=== PATIENT | male | born 1955 | race Caucasian/White ===

== ENCOUNTER 2016-12-09 10:58 | Emergency (ER) | payer BC ==
[~2016-12-09] VITALS: Ht 180.3 cm; Wt 77.3 kg
[2016-12-09] MEDS ORDERED: DIPH,PERTUSS(ACELL),TET VAC/PF 0.5 ML IM-VACC ONE ×2 (12:00→12:06)
[2016-12-09] MEDS ORDERED: LIDOCAINE 1%, 20ML ONE (12:05)
[2016-12-09] MEDS ORDERED: LIDOCAINE 1%, 20ML INFIL ONE (12:30)
[2016-12-09 16:00] VITALS: BP 111/77
== END 2016-12-09 16:04 | disposition home or self-care (01) ==
LOC: ED 14:12
DX: S02.2XXB Fracture of nasal bones, initial encounter for open fracture (principal); S02.2XXA Fracture of nasal bones, initial encounter for closed fracture; S01.81XA Laceration without foreign body of other part of head, initial encounter; S01.411A Laceration without foreign body of right cheek and temporomandibular area, initial encounter; Y04.2XXA Assault by strike against or bumped into by another person, initial encounter; Y93.89 Activity, other specified; Y92.512 Supermarket, store or market as the place of occurrence of the external cause; Y99.8 Other external cause status
CPT/HCPCS: 12013; 13151; 70450; 70486; 72125; 90471; 90715; 93005; 99285; J3490

== ENCOUNTER 2017-02-11 13:16 | Inpatient (IN) | payer BC ==
[~2017-02-11] VITALS: Ht 180.3 cm; Wt 78.7 kg
[2017-02-11] MEDS ORDERED: LORazepam 2 MG/ML, 1ML IVPush ONE (13:30)
[2017-02-11] MEDS ORDERED: SODIUM CHLORIDE FLUSH 10ML SYR IVF ONE (13:30)
[2017-02-11] MEDS ORDERED: FOLIC ACID 1 MG in DEXTROSE 5% 50 ML IV STA (13:37)
[2017-02-11] MEDS ORDERED: THIAMINE 100 MG/ML, 2ML IM ONE (14:00)
[2017-02-11] MEDS ORDERED: SODIUM CHLORIDE 0.9% 1,000ML IVBOLUS ONE (14:00)
[2017-02-11 14:08] LABS: ASPARTATE AMINO TRANSFERASE 41 U/L (15-37); BLOOD UREA NITROGEN 13 mg/dL (7-18)
[2017-02-11 14:17] LABS: ACETAMINOPHEN < 2 mcg/mL (10-30); IS PT STATUS REG ER OR PRE ER? YES
[2017-02-11] MEDS ORDERED: LORazepam 2 MG/ML, 1ML ONE (14:19)
[2017-02-11] MEDS ORDERED: THIAMINE 100 MG/ML, 2ML ONE (14:36)
[2017-02-11 14:57] LABS: HEMATOCRIT 46.4 % (39.2-51.8); HEMOGLOBIN 15.6 g/dL (13.7-18.0); WHITE BLOOD COUNT 4.7 x10^3/uL (3.4-10)
[2017-02-11] MEDS ORDERED: ENALAPRILAT 1.25 MG/ML, 2ML IVPush PRN (16:00)
[2017-02-11] MEDS ORDERED: BISACODYL 10 MG SUPP PR PRN (16:00)
[2017-02-11] MEDS ORDERED: ONDANSETRON 2MG/ML, 2ML IVPush PRN (16:00)
[2017-02-11] MEDS ORDERED: DOCUSATE 100 MG CAPSULE PO PRN (16:00)
[2017-02-11] MEDS ORDERED: LORazepam 0.5MG TABLET PO PRN (16:00)
[2017-02-11] MEDS ORDERED: LORazepam 1MG TABLET PO PRN ×2 (16:00)
[2017-02-11] MEDS ORDERED: POTASSIUM CHLORIDE 20 MEQ TAB.ER.PRT PO ONE (16:00)
[2017-02-11] MEDS ORDERED: POLYETHYLENE GLYCOL 17 GM PACKET PO PRN (16:00)
[2017-02-11] MEDS ORDERED: ONDANSETRON ODT 4 MG PO PRN (16:00)
[2017-02-11] MEDS ORDERED: ZOLPIDEM 10MG TABLET PO PRN (16:30)
[2017-02-11] MEDS ORDERED: POTASSIUM CHLORIDE 20 MEQ TAB.ER.PRT ONE (16:34)
[2017-02-11] MEDS: POTASSIUM CHLORIDE 20 MEQ, MAGNESIUM SULFATE 2 GM, THIAMINE 100 MG, MVI ADULT 10 ML, FO... IV SCH (18:24)
[2017-02-11 18:28] VITALS: BP 135/100
[2017-02-11 19:41] VITALS: BP 115/81
[2017-02-11] MEDS: NICOTINE 21 MG/24 HR PATCH.TD24 TD SCH (22:07)
[2017-02-12 02:21] VITALS: BP 113/78
[2017-02-12 05:44] LABS: HEMATOCRIT 39.7 % (39.2-51.8); HEMOGLOBIN 13.5 g/dL (13.7-18.0); WHITE BLOOD COUNT 3.5 x10^3/uL (3.4-10)
[2017-02-12 05:49] LABS: BLOOD UREA NITROGEN 10 mg/dL (7-18)
[2017-02-12 07:17] VITALS: BP 124/89
[2017-02-12] MEDS: POTASSIUM CHLORIDE 20 MEQ, MAGNESIUM SULFATE 2 GM, THIAMINE 100 MG, MVI ADULT 10 ML, FO... IV SCH (09:52)
[2017-02-12 15:14] VITALS: BP 125/87
[2017-02-12 19:34] VITALS: BP 123/89
[2017-02-12] MEDS: NICOTINE 21 MG/24 HR PATCH.TD24 TD SCH (19:42)
[2017-02-13 00:39] VITALS: BP 111/77
[2017-02-13] MEDS: LORazepam 1MG TABLET PO PRN ×2 (00:45→03:08)
[2017-02-13 05:05] VITALS: BP 109/71
[2017-02-13 05:26] LABS: ASPARTATE AMINO TRANSFERASE 25 U/L (15-37); BLOOD UREA NITROGEN 8 mg/dL (7-18)
[2017-02-13] MEDS ORDERED: LORazepam 2 MG/ML, 1ML IVPush PRN (06:30)
[2017-02-13 08:00] VITALS: BP 99/56
[2017-02-13] MEDS ORDERED: LORazepam 2 MG/ML, 1ML ONE (08:02)
[2017-02-13] MEDS ORDERED: LORazepam 2 MG/ML, 1ML IV PRN ×3 (08:30)
[2017-02-13] MEDS: LORazepam 2 MG/ML, 1ML IV PRN ×8 (08:44→17:46)
[2017-02-13] MEDS: POTASSIUM CHLORIDE 20 MEQ, MAGNESIUM SULFATE 2 GM, THIAMINE 100 MG, MVI ADULT 10 ML, FO... IV SCH (09:44)
[2017-02-13 10:30] VITALS: BP 127/60
[2017-02-13 12:50] VITALS: BP 148/106
[2017-02-13 14:19] VITALS: BP 129/88
[2017-02-13] MEDS: NICOTINE 21 MG/24 HR PATCH.TD24 TD SCH (21:39)
[2017-02-13] MEDS: LORazepam 10 MG in SODIUM CHLORIDE 0.9% 245 ML IV PRN (22:34)
[2017-02-14] MEDS: LORazepam 10 MG in SODIUM CHLORIDE 0.9% 245 ML IV PRN (00:19)
[2017-02-14] MEDS: LORazepam 20 MG in SODIUM CHLORIDE 0.9% 240 ML IV PRN ×2 (03:01→07:56)
[2017-02-14 04:15] VITALS: BP 147/102
[2017-02-14] MEDS ORDERED: LORazepam 2 MG/ML, 1ML ONE ×2 (07:48→07:49)
[2017-02-14] MEDS: DIAZEPAM 5 MG/ML, 2ML IV SCH ×5 (08:47→21:03)
[2017-02-14] MEDS: CHLORDIAZEPOXIDE 25 MG CAPSULE PO SCH ×3 (08:48→20:48)
[2017-02-14] MEDS: POTASSIUM CHLORIDE 20 MEQ, MAGNESIUM SULFATE 2 GM, THIAMINE 100 MG, MVI ADULT 10 ML, FO... IV SCH (12:24)
[2017-02-14] MEDS: NICOTINE 21 MG/24 HR PATCH.TD24 TD SCH (20:48)
[2017-02-15] MEDS: DIAZEPAM 5 MG/ML, 2ML IV SCH ×5 (04:00→15:52)
[2017-02-15 08:16] LABS: ASPARTATE AMINO TRANSFERASE 32 U/L (15-37); BLOOD UREA NITROGEN 8 mg/dL (7-18)
[2017-02-15 08:18] LABS: HEMATOCRIT 43.4 % (39.2-51.8); HEMOGLOBIN 14.5 g/dL (13.7-18.0); WHITE BLOOD COUNT 4.1 x10^3/uL (3.4-10)
[2017-02-15] MEDS: CHLORDIAZEPOXIDE 25 MG CAPSULE PO SCH ×3 (09:00→21:55)
[2017-02-15] MEDS: FOLIC ACID 1 MG TABLET PO SCH (10:00)
[2017-02-15] MEDS: MULTIVITAMIN 1 TABLET PO SCH (14:08)
[2017-02-15] MEDS: THIAMINE 100MG TABLET PO SCH (14:08)
[2017-02-15] MEDS ORDERED: DIAZEPAM 5 MG/ML, 2ML IV PRN (20:00)
[2017-02-15] MEDS: NICOTINE 21 MG/24 HR PATCH.TD24 TD SCH (21:54)
[2017-02-16 05:45] LABS: HEMATOCRIT 38.8 % (39.2-51.8); HEMOGLOBIN 13.2 g/dL (13.7-18.0); WHITE BLOOD COUNT 3.6 x10^3/uL (3.4-10)
[2017-02-16 05:46] LABS: BLOOD UREA NITROGEN 12 mg/dL (7-18)
[2017-02-16 05:49] LABS: ASPARTATE AMINO TRANSFERASE 27 U/L (15-37)
[2017-02-16 06:27] LABS: DIFF TOTAL CELLS COUNTED 100 CELL DIFF
[2017-02-16 06:32] LABS: VERIFY COUNTS? YES
[2017-02-16 08:30] VITALS: BP 118/84
[2017-02-16] MEDS: CHLORDIAZEPOXIDE 25 MG CAPSULE PO SCH ×3 (10:06→20:08)
[2017-02-16] MEDS: MULTIVITAMIN 1 TABLET PO SCH (10:06)
[2017-02-16] MEDS: FOLIC ACID 1 MG TABLET PO SCH (10:06)
[2017-02-16] MEDS: THIAMINE 100MG TABLET PO SCH (10:06)
[2017-02-16 13:16] VITALS: BP 121/81
[2017-02-16 19:11] VITALS: BP 93/62
[2017-02-16] MEDS: NICOTINE 21 MG/24 HR PATCH.TD24 TD SCH (20:08)
[2017-02-17 00:57] VITALS: BP 91/61
[2017-02-17 06:44] VITALS: BP 98/77
[2017-02-17] MEDS: CHLORDIAZEPOXIDE 25 MG CAPSULE PO SCH ×3 (10:16→21:54)
[2017-02-17] MEDS: THIAMINE 100MG TABLET PO SCH (10:16)
[2017-02-17] MEDS: FOLIC ACID 1 MG TABLET PO SCH (10:16)
[2017-02-17] MEDS: MULTIVITAMIN 1 TABLET PO SCH (10:16)
[2017-02-17] MEDS ORDERED: CLON1PAT2 TD (12:59)
[2017-02-17 16:00] VITALS: BP 92/67
[2017-02-17 20:01] VITALS: BP 94/66
[2017-02-17] MEDS: NICOTINE 21 MG/24 HR PATCH.TD24 TD SCH (21:54)
[2017-02-18 01:20] VITALS: BP 109/75
[2017-02-18 09:23] VITALS: BP 111/71
[2017-02-18] MEDS: MULTIVITAMIN 1 TABLET PO SCH (09:37)
[2017-02-18] MEDS: THIAMINE 100MG TABLET PO SCH (09:37)
[2017-02-18] MEDS: FOLIC ACID 1 MG TABLET PO SCH (09:37)
[2017-02-18] MEDS: CHLORDIAZEPOXIDE 25 MG CAPSULE PO SCH ×3 (09:37→20:30)
[2017-02-18 13:10] VITALS: BP 92/64
[2017-02-18] MEDS: SODIUM CHLORIDE 0.9% 1,000 ML IV SCH (17:19)
[2017-02-18 19:45] VITALS: BP 102/72
[2017-02-18] MEDS: NICOTINE 21 MG/24 HR PATCH.TD24 TD SCH (20:31)
[2017-02-19] VITALS (7 sets, daily range): BP systolic 84–109; BP diastolic 58–73
[2017-02-19] MEDS ORDERED: ACETAMINOPHEN 325 MG TABLET ONE (00:42)
[2017-02-19] MEDS: ACETAMINOPHEN 325 MG TABLET PO PRN ×2 (00:44→20:55)
[2017-02-19] MEDS: SODIUM CHLORIDE 0.9% 1,000 ML IV SCH (02:30)
[2017-02-19] MEDS: THIAMINE 100MG TABLET PO SCH (07:33)
[2017-02-19] MEDS: CHLORDIAZEPOXIDE 25 MG CAPSULE PO SCH ×3 (07:33→20:55)
[2017-02-19] MEDS: MULTIVITAMIN 1 TABLET PO SCH (07:33)
[2017-02-19] MEDS: FOLIC ACID 1 MG TABLET PO SCH (07:33)
[2017-02-19] MEDS ORDERED: SODIUM CHLORIDE 0.9% 1,000 ML IV SCH ×2 (16:00)
[2017-02-19] MEDS: NICOTINE 21 MG/24 HR PATCH.TD24 TD SCH (20:55)
[2017-02-20 02:10] VITALS: BP 99/69
[2017-02-20] MEDS ORDERED: CHLO25CA9 PO (07:18)
[2017-02-20 07:41] VITALS: BP 105/77
[2017-02-20] MEDS: THIAMINE 100MG TABLET PO SCH (08:45)
[2017-02-20] MEDS: CHLORDIAZEPOXIDE 25 MG CAPSULE PO SCH (08:45)
[2017-02-20] MEDS: MULTIVITAMIN 1 TABLET PO SCH (08:45)
[2017-02-20] MEDS: FOLIC ACID 1 MG TABLET PO SCH (08:45)
== END 2017-02-20 13:00 | disposition home health service (06) | DRG 432 ==
LOC: ED 15:31 → EDIP 15:36 → ED 16:12 → 5SO 18:17 → CCU 02-13 18:19 → 4WST 02-16 02:15
PROVIDERS: ATTEND Internal Medicine
DX: K70.30 Alcoholic cirrhosis of liver without ascites (principal); E43 Unspecified severe protein-calorie malnutrition; K70.10 Alcoholic hepatitis without ascites; I62.03 Nontraumatic chronic subdural hemorrhage; F10.231 Alcohol dependence with withdrawal delirium; I95.9 Hypotension, unspecified; D68.9 Coagulation defect, unspecified; E87.1 Hypo-osmolality and hyponatremia; D75.89 Other specified diseases of blood and blood-forming organs; E86.0 Dehydration; F10.20 Alcohol dependence, uncomplicated; E87.6 Hypokalemia; Z60.2 Problems related to living alone; Z71.6 Tobacco abuse counseling; Z71.41 Alcohol abuse counseling and surveillance of alcoholic; Z68.24 Body mass index [BMI] 24.0-24.9, adult; Z87.891 Personal history of nicotine dependence
CPT/HCPCS: 36415; 70450; 71010; 80048; 80053; 80307; 80329; 81003; 82140; 82607; 82746; 83735; 84100; 84443; 84484; 85025; 85610; 87081; 93005; 96365; 96372; 96375; J2060; J3360; J3411; J3475; J3480; J7042; G0480; J7030; J7050

== ENCOUNTER 2018-09-23 11:04 | Emergency (ER) | payer MEDICARE, BC ==
[~2018-09-23] VITALS: Ht 180.3 cm; Wt 70.0 kg
[~2018-09-23 11:04] MED LIST: CHLO25CA9 PO; CLON1PAT2 TD
[2018-09-23] MEDS ORDERED: SULFAMETH./TRIMETHOPRIM DS 800MG/160MG TABLET PO ONE (11:30)
[2018-09-23] MEDS ORDERED: CEFAZOLIN 1,000 MG IM ONE (11:30)
[2018-09-23] MEDS ORDERED: LIDOCAINE-MPF 1%, 2ML ONE (11:34)
[2018-09-23] MEDS ORDERED: SULFAMETH./TRIMETHOPRIM DS 800MG/160MG TABLET ONE (11:34)
[2018-09-23] MEDS ORDERED: CEFAZOLIN 1,000 MG ONE (11:34)
[2018-09-23] MEDS ORDERED: HYDROcodone/APAP 5/325 TABLET ONE (11:34)
--- NOTE | 2018-09-23 11:58 | NUR ---
I&D SET UP FOR PA. PT MEDICATED PER ERP ORDER. AWAITING XR READ, CALL LIGHT WITHIN REACH. PT UPDATED ON POC.
[2018-09-23] MEDS ORDERED: HYDROcodone/APAP 5/325 TABLET PO ONE (12:00)
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
[2018-09-23 12:58] VITALS: BP 138/84
== END 2018-09-23 13:12 | disposition home or self-care (01) ==
LOC: ED 12:16
DX: L03.116 Cellulitis of left lower limb (principal)
CPT/HCPCS: 10060; 73610; 87070; 87147; 87205; 96372; 99284; J0690

== ENCOUNTER 2018-09-24 13:08 | Emergency (ER) | payer MEDICARE, BC ==
[~2018-09-24] VITALS: Ht 180.3 cm; Wt 70.0 kg
[2018-09-24 13:31] VITALS: BP 135/93
--- NOTE | 2018-09-24 14:44 | NUR ---
Patient/Caregiver given discharge instructions and they have confirmed that they understand the instructions. Patient ambulatory with steady gait.
== END 2018-09-24 14:57 | disposition home or self-care (01) ==
LOC: ED 14:47
DX: Z48.01 Encounter for change or removal of surgical wound dressing (principal); F17.200 Nicotine dependence, unspecified, uncomplicated
CPT/HCPCS: 99283

== ENCOUNTER 2018-10-10 00:39 | Inpatient (IN) | payer MEDICARE, BC ==
[~2018-10-10] VITALS: Ht 182.9 cm; Wt 72.6 kg
[2018-10-10] MEDS ORDERED: SODIUM CHLORIDE 0.9% 1,000 ML IV ONE (00:50)
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
[2018-10-10 01:45] LABS: BASOPHILS # (AUTO) 0.02 x10^3/uL (0-0.1); BASOPHILS % (AUTO) 0 % (0-1); EOSINOPHILS # (AUTO) 0.01 x10^3/uL (0-0.4); EOSINOPHILS % (AUTO) 0 % (1-7); LYMPHOCYTES # (AUTO) 0.95 x10^3/uL (1-3.4); LYMPHOCYTES % (AUTO) 20 % (22-44); MD NO; MEAN CORPUSCULAR HEMOGLOBIN 33.9 pg (27.5-34.5); MEAN CORPUSCULAR HGB CONC 34.1 g/dL (33.2-36.2); MEAN CORPUSCULAR VOLUME 99.3 fL (81-97); MEAN PLATELET VOLUME 8.2 fL (7.4-10.4); MONOCYTES % (AUTO) 10 % (2-9); NEUTROPHILS % (AUTO) 70 % (42-75); PLATELET COUNT 146 x10^3/uL (130-400); RED BLOOD COUNT 4.23 x10^6/uL (4.38-5.82); RED CELL DISTRIBUTION WIDTH 16.3 % (9.4-14.8)
[2018-10-10 01:52] LABS: INTERNATIONAL NORMALIZED RATIO 1.05 (0.93-1.1)
[2018-10-10 02:14] LABS: ALANINE AMINOTRANSFERASE 34 U/L (12-78); ALBUMIN 4.4 g/dL (3.4-5.0); ANION GAP 9 mmol/L (5-15); CALCIUM 8.7 mg/dL (8.5-10.1); CHLORIDE 110 mmol/L (98-107); CREATININE 0.72 mg/dL (0.7-1.3); SALICYLATE LEVEL < 1.7 mg/dL (2.8-20.0)
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
[2018-10-10 02:25] LABS: ALKALINE PHOSPHATASE 52 U/L (45-117); BILIRUBIN,TOTAL 0.5 mg/dL (0.2-1.0); TOTAL PROTEIN 7.7 g/dL (6.4-8.2)
[2018-10-10 02:32] LABS: ACETAMINOPHEN < 2 mcg/mL (10-30)
[2018-10-10] MEDS ORDERED: MAGNESIUM SULFATE 1 GM, THIAMINE 100 MG, FOLIC ACID 1 MG, MVI ADULT 10 ML in SODIUM CHL... IV ONE (03:00)
--- NOTE | 2018-10-10 03:15 | NUR ---
REPORT TO GROVER PRYOR. PT HAS BEEN TRYING TO GET UP OUT OF BED. PT STATED HE IS TRYING TO GET TO HIS BROTHER'S HOUSE. PT PLACED BACK IN BED.
[2018-10-10] MEDS ORDERED: LORazepam 2 MG/ML, 1ML IV PRN ×4 (03:30→12:30)
[2018-10-10] MEDS ORDERED: LORazepam 2 MG/ML, 1ML IVPush ONE (03:30)
[2018-10-10 05:48] VITALS: BP 164/104
[2018-10-10 05:50] LABS: AMPHETAMINE SCREEN, URINE Negative (Negative); BARBITURATE SCREEN, URINE Negative (Negative); BENZODIAZEPINE SCREEN, URINE Negative (Negative); CANNABINOID SCREEN, URINE Negative (Negative); COCAINE SCREEN, URINE Negative (Negative); METHADONE SCREEN, URINE Negative (Negative); OPIATE SCREEN, URINE Negative (Negative)
[2018-10-10 05:59] VITALS: BP 131/94
[2018-10-10 07:25] VITALS: BP 140/94
[2018-10-10] MEDS ORDERED: THIAMINE 100MG TABLET PO SCH (09:00)
[2018-10-10] MEDS ORDERED: MULTIVITAMINS/MINERALS TABLET PO SCH (09:00)
[2018-10-10] MEDS ORDERED: LORazepam 0.5MG TABLET PO PRN (12:30)
[2018-10-10] MEDS ORDERED: LORazepam 1MG TABLET PO PRN ×3 (12:30)
[2018-10-10] MEDS: LORazepam 2 MG/ML, 1ML IV PRN ×4 (12:37→22:51)
[2018-10-10 14:27] VITALS: BP 140/96
[2018-10-10] MEDS: CHLORDIAZEPOXIDE 10 MG CAPSULE PO SCH ×2 (15:49→21:00)
[2018-10-10] MEDS ORDERED: POTASSIUM CHLORIDE 20 MEQ, MAGNESIUM SULFATE 1 GM, MVI ADULT 10 ML, THIAMINE 200 MG, FO... IV SCH (18:00)
[2018-10-10 19:32] VITALS: BP 136/92
[2018-10-11 01:12] VITALS: BP 127/88
[2018-10-11] MEDS: LORazepam 2 MG/ML, 1ML IV PRN ×5 (02:49→08:04)
[2018-10-11] MEDS ORDERED: ZIPRASIDONE 20 MG INJ IM ONE (05:25)
[2018-10-11 05:39] VITALS: BP 138/100
[2018-10-11] MEDS: CHLORDIAZEPOXIDE 10 MG CAPSULE PO SCH (05:47)
[2018-10-11 06:45] LABS: BASOPHILS # (AUTO) 0.02 x10^3/uL (0-0.1); BASOPHILS % (AUTO) 1 % (0-1); EOSINOPHILS # (AUTO) 0.06 x10^3/uL (0-0.4); EOSINOPHILS % (AUTO) 1 % (1-7); LYMPHOCYTES # (AUTO) 1.12 x10^3/uL (1-3.4); LYMPHOCYTES % (AUTO) 26 % (22-44); MD NO; MEAN CORPUSCULAR HGB CONC 34.3 g/dL (33.2-36.2); MEAN CORPUSCULAR VOLUME 99.1 fL (81-97); MEAN PLATELET VOLUME 8.5 fL (7.4-10.4); MONOCYTES # (AUTO) 0.48 x10^3/uL (0.2-0.8); MONOCYTES % (AUTO) 11 % (2-9); NEUTROPHILS # (AUTO) 2.65 x10^3/uL (1.8-6.8); NEUTROPHILS % (AUTO) 61 % (42-75); PLATELET COUNT 115 x10^3/uL (130-400); RED BLOOD COUNT 4.06 x10^6/uL (4.38-5.82); RED CELL DISTRIBUTION WIDTH 15.8 % (9.4-14.8)
[2018-10-11 06:51] LABS: ANION GAP 10 mmol/L (5-15); CALCIUM 8.4 mg/dL (8.5-10.1); CHLORIDE 109 mmol/L (98-107); CREATININE 0.56 mg/dL (0.7-1.3)
[2018-10-11 07:29] VITALS: BP 130/85
[2018-10-11] MEDS ORDERED: THIAMINE 100 MG in DEXTROSE 5% 50 ML IVPB SCH (09:00)
== END 2018-10-11 11:55 | disposition left against medical advice (07) | DRG 92 ==
LOC: ED 02:01 → EDIP 02:51 → 4WST 04:04
PROVIDERS: ADMIT Internal Medicine; ATTEND Internal Medicine
DX: G92 Toxic encephalopathy (principal); F10.231 Alcohol dependence with withdrawal delirium; Z53.21 Procedure and treatment not carried out due to patient leaving prior to being seen by health care provider; D75.89 Other specified diseases of blood and blood-forming organs; Z59.0 Homelessness; Z63.8 Other specified problems related to primary support group
CPT/HCPCS: 36415; 70450; 71045; 80048; 80053; 80307; 80329; 82140; 82607; 84425; 84443; 85025; 85610; 85730; 93005; 96360; 96361; G0378; J3411; J3475; J3480; J3486; G0480; J2060; J7030

== ENCOUNTER 2018-12-30 12:59 | Emergency (ER) | payer MEDICARE, BC ==
[~2018-12-30] VITALS: Ht 180.3 cm; Wt 73.5 kg
[2018-12-30] MEDS ORDERED: LORazepam 2 MG/ML, 1ML ONE (13:23)
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
--- NOTE | 2018-12-30 13:25 | NUR ---
pt medicated per md order.
[2018-12-30] MEDS ORDERED: LORazepam 2 MG/ML, 1ML IVPush ONE (13:30)
[2018-12-30 13:42] LABS: INTERNATIONAL NORMALIZED RATIO 1.02 (0.93-1.1); PROTHROMBIN TIME 10.7 Seconds (9.6-11.5)
[2018-12-30 13:44] LABS: ALANINE AMINOTRANSFERASE 91 U/L (12-78); ALBUMIN 4.2 g/dL (3.4-5.0); ANION GAP 23 mmol/L (5-15); CALCIUM 8.7 mg/dL (8.5-10.1); CHLORIDE 101 mmol/L (98-107); CREATININE 0.97 mg/dL (0.7-1.3)
[2018-12-30 13:46] LABS: ALKALINE PHOSPHATASE 70 U/L (45-117); BILIRUBIN,TOTAL 2.2 mg/dL (0.2-1.0); TOTAL PROTEIN 7.8 g/dL (6.4-8.2)
[2018-12-30] MEDS ORDERED: CLINDAMYCIN 300 MG CAPSULE ONE (14:12)
[2018-12-30 14:53] LABS: BASOPHILS % (AUTO) 0 % (0-1); EOSINOPHILS % (AUTO) 0 % (1-7); LYMPHOCYTES # (AUTO) 0.38 x10^3/uL (1-3.4); LYMPHOCYTES % (AUTO) 7 % (22-44); MD SCAN; MEAN CORPUSCULAR HEMOGLOBIN 32.3 pg (27.5-34.5); MEAN CORPUSCULAR HGB CONC 33.1 g/dL (33.2-36.2); MEAN CORPUSCULAR VOLUME 97.7 fL (81-97); MONOCYTES # (AUTO) 0.44 x10^3/uL (0.2-0.8); MONOCYTES % (AUTO) 8 % (2-9); NEUTROPHILS # (AUTO) 4.97 x10^3/uL (1.8-6.8); NEUTROPHILS % (AUTO) 86 % (42-75); RED BLOOD COUNT 4.54 x10^6/uL (4.38-5.82); RED CELL DISTRIBUTION WIDTH 15.3 % (9.4-14.8)
[2018-12-30 14:56] LABS: PLATELET COUNT 42 x10^3/uL (130-400)
[2018-12-30] MEDS ORDERED: ONDANSETRON ODT 4 MG PO ONE (15:00)
[2018-12-30] MEDS ORDERED: POTASSIUM CHLORIDE 20 MEQ TAB.ER.PRT PO ONE (15:00)
[2018-12-30] MEDS ORDERED: ONDANSETRON ODT 4 MG ONE (15:00)
[2018-12-30] MEDS ORDERED: LORazepam 1MG TABLET ONE (15:00)
[2018-12-30] MEDS ORDERED: LORazepam 1MG TABLET PO ONE (15:00)
[2018-12-30] MEDS ORDERED: POTASSIUM CHLORIDE 20 MEQ TAB.ER.PRT ONE (15:00)
[2018-12-30 15:02] VITALS: BP 121/85
--- NOTE | 2018-12-30 15:06 | NUR ---
THIS RN AND MD [facility] WITH [facility]. PT REPORTS THAT "I HAVE A DATE TONIGHT AND I DONT WANT TO MISS". PT REPORTS THAT HE FEELS THAT HE IS OKAY TO GO HOME AND HE WILL TAKE HOME POTASSIUM WHEN HE GETS HOME. PT WILLING TO SIGN AMA AND UNDERSTANDS SYMPTOMS AND REASON TO RETURN.
--- NOTE | 2018-12-30 15:10 | NUR ---
PT WANTS TO LEAVE AMA, RISKS AND BENEFITS DISCUSSED, PT STILL REQUESTING TO LEAVE. MD AT BEDSIDE TO SPEAK WITH PT. PT STILL WANTS TO LEAVE. AMA PAPERWORK COMPLETED, IV REMOVED, PT ESCORTED TO LOBBY.
[2018-12-30] MEDS ORDERED: POTASSIUM CHLORIDE 40 MEQ in SODIUM CHLORIDE 0.9% 500 ML IV ONE (16:00)
== END 2018-12-30 15:17 | disposition left against medical advice (07) ==
LOC: ED 13:31
DX: S80.211A Abrasion, right knee, initial encounter (principal); E87.6 Hypokalemia; F10.239 Alcohol dependence with withdrawal, unspecified; G40.509 Epileptic seizures related to external causes, not intractable, without status epilepticus; Z72.9 Problem related to lifestyle, unspecified; W18.39XA Other fall on same level, initial encounter; Y93.89 Activity, other specified; Y92.828 Other wilderness area as the place of occurrence of the external cause; Y99.8 Other external cause status
CPT/HCPCS: 36415; 80053; 83605; 83690; 85025; 85610; 96374; 99284; J2060; Q0162